=== PATIENT | female | born 1950 | race Caucasian/White ===

== ENCOUNTER 2016-06-14 09:12 | Outpatient (CLI) | payer MEDICARE, BC ==
--- NOTE | 2016-06-14 20:20 | RAD ---
PELVIS ONE VIEW 06/14/16 A single view no evidence of fracture. The bony pelvis appears intact. The SI joints are symmetrical and the symphysis shows no widening. The hip joints are symmetrical. No major hip fracture was carmelo cated. See right hip dictation to follow. the arcuate lines of the sacrum appear intact. IMPRESSION: No acute finding. POS: HOME
--- NOTE | 2016-06-14 20:41 | RAD ---
RIGHT HIP TWO VIEWS 06/14/16 Comparison is made with a 06/29/15 study. No major fracture or area of bony destruction was seen. The adjacent pubic ring is intact. The artic ular surface of the femoral head is smooth and the hip joint space is normal in width. On the rotated view, one sees a very tiny mike of bone along the lateral aspect of the upper acetab ulum. Looking at the hip x-ray done last year, this may have been present, but it overlapped the res t of the acetabulum, so it really could not be seen well. This could either be an old chip avulsion or it could relate to a developmental anomaly. Given the patient's chronic hip pain, an MRI of the h ip could be useful in investigating further if needed. IMPRESSION: 1. No acute bony findings. 2. Very tiny chip of bone seen on one view only along the lateral aspect of the acetabulum. Def initely not recent and possibly related to remote trauma. POS: HOME
== END 2016-06-14 09:13 | disposition home or self-care (01) ==
LOC: BURRAD 09:12
PROVIDERS: ATTEND Physician Assistant
DX: M25.551 Pain in right hip (principal); W19.XXXA Unspecified fall, initial encounter
CPT/HCPCS: 72170

== ENCOUNTER 2016-08-09 09:02 | Emergency (ER) | payer MEDICARE, BC ==
[2016-08-09] MEDS ORDERED: Lorazepam 2 MG/ML VIAL ONE (09:20)
[2016-08-09] MEDS ORDERED: Ondansetron HCl/PF 4 MG/2 ML Vial ONE (09:21)
[2016-08-09 09:31] LABS: #Basophils 0.1 thou/uL (0.0-0.2); #Lymphocytes 1.6 thou/uL (1.20-3.40); #Monocytes 0.6 thou/uL (0.11-0.59); #Neutrophils 9.6 thou/uL (1.40-6.50); %Basophils 0.5 % (0.0-1.0); %Eosinophils 0.3 % (0.0-10.0); %Lymphocytes 13.3 % (21.0-51.0); %Monocytes 4.7 % (0.0-10.0); %Neutrophils 81.2 % (42.0-75.0); Hemoglobin 16.2 g/dL (12.0-16.0); Mean Corpuscular HGB CONC 34.7 g/dL (32.0-36.0); Mean Corpuscular Hemoglobin 32.1 pg (27.0-31.0); Mean Corpuscular Volume 92.5 fl (81.0-99.0); Mean Platelet Volume 7.6 fL (7.4-10.4); Platelet Count 222 thou/uL (130-400); RBC Distribution Width 11.8 % (11.5-14.5); Red Blood Cell (RBC) Count 5.04 mill/uL (4.20-5.40); White Blood Cell (WBC) Count 11.8 thou/uL (4.8-10.8)
[2016-08-09 09:36] LABS: Bilirubin Negative (Negative); Blood, Urine Negative (Negative); Clarity Slightly Cloudy (Clear); Glucose, Urine (Dipstick) Negative (Negative); Leukocyte Negative (Negative); Nitrite Negative (Negative); pH, Urine 8.5 (5.0-9.0)
[2016-08-09 09:38] LABS: Protein, Urine (Dipstick) Negative (Neg-Trace)
[2016-08-09 09:43] LABS: ALT (SGPT) 64 U/L (8-55); AST (SGOT) 45 U/L (5-34); Albumin 4.7 g/dL (3.4-4.8); Alkaline Phosphatase 75 U/L (40-150); Anion Gap 17 mmol/L (10-20); BUN (Urea Nitrogen) 15 mg/dL (9.8-20.1); Calc. Creatinine Clearance 0 mL/min (70-130); Calcium 10.2 mg/dL (7.8-10.44); Carbon Dioxide 27 mmol/L (23-31); Chloride 98 mmol/L (98-107); Estimated GFR-MDRD 69; Globulin 3.6 g/dL (2.4-3.5); Glucose 122 mg/dL (80-115); Lipase 20 U/L (8-78); Protein, Total 8.3 g/dL (6.0-8.3); Sodium 139 mmol/L (136-145)
[2016-08-09 09:46] LABS: CKMB 2.5 ng/mL (0-6.6); Troponin I Less than 0.010 ng/mL (< 0.028)
[2016-08-09] MEDS ORDERED: Potassium Chloride 20 MEQ TAB ONE (09:47)
== END 2016-08-09 10:18 | disposition home or self-care (01) ==
LOC: BURERS 09:02
DX: R11.2 Nausea with vomiting, unspecified (principal); R10.30 Lower abdominal pain, unspecified; I10 Essential (primary) hypertension; G43.909 Migraine, unspecified, not intractable, without status migrainosus
CPT/HCPCS: 80053; 81003; 82553; 83690; 84484; 85025; 93005; 96361; 96374; 96375; J2060; J2405

== ENCOUNTER 2016-08-10 06:28 | Emergency (ER) | payer MEDICARE, BC ==
[2016-08-10] MEDS ORDERED: Lidocaine Viscous Sol 2% 15 ml UD Cup ONE (07:01)
[2016-08-10] MEDS ORDERED: Mag-Al Plus 1200 MG/1200 MG/120 MG/30 ML UDCUP ONE (07:01)
[2016-08-10] MEDS ORDERED: Promethazine HCl 25 MG/ML VIAL ONE (07:01)
[2016-08-10] MEDS ORDERED: Ketorolac Tromethamine 30 MG/ML VIAL ONE (07:01)
[2016-08-10 07:25] LABS: ALT (SGPT) 57 U/L (8-55); AST (SGOT) 40 U/L (5-34); Albumin 4.2 g/dL (3.4-4.8); Alkaline Phosphatase 68 U/L (40-150); Anion Gap 14 mmol/L (10-20); BUN (Urea Nitrogen) 14 mg/dL (9.8-20.1); Bilirubin, Total 0.8 mg/dL (0.2-1.2); Calc. Creatinine Clearance 0 mL/min (70-130); Calcium 9.7 mg/dL (7.8-10.44); Carbon Dioxide 28 mmol/L (23-31); Chloride 101 mmol/L (98-107); Estimated GFR-MDRD 73; Globulin 3.1 g/dL (2.4-3.5); Glucose 106 mg/dL (80-115); Lipase 19 U/L (8-78); Potassium 3.3 mmol/L (3.5-5.1); Protein, Total 7.3 g/dL (6.0-8.3); Sodium 140 mmol/L (136-145)
[2016-08-10 07:26] LABS: CKMB 2.6 ng/mL (0-6.6); Troponin I Less than 0.010 ng/mL (< 0.028)
[2016-08-10 07:49] LABS: #Lymphocytes 1.7 thou/uL (1.20-3.40); #Monocytes 0.4 thou/uL (0.11-0.59); %Basophils 0.5 % (0.0-1.0); %Eosinophils 0.5 % (0.0-10.0); %Monocytes 6.2 % (0.0-10.0); %Neutrophils 69.8 % (42.0-75.0); Hemoglobin 15.5 g/dL (12.0-16.0); Mean Corpuscular HGB CONC 34.7 g/dL (32.0-36.0); Mean Corpuscular Hemoglobin 32.3 pg (27.0-31.0); Mean Corpuscular Volume 93.3 fl (81.0-99.0); Mean Platelet Volume 8.4 fL (7.4-10.4); Platelet Count 209 thou/uL (130-400); RBC Distribution Width 12.2 % (11.5-14.5); Red Blood Cell (RBC) Count 4.81 mill/uL (4.20-5.40); White Blood Cell (WBC) Count 7.2 thou/uL (4.8-10.8)
--- NOTE | 2016-08-10 08:48 | CT ---
CT ABDOMEN AND PELVIS WITH CONTRAST: HISTORY: Evaluate for small bowel obstruction. Midabdominal pain. History of colon resection. Hysterectomy . Appendectomy. COMPARISON: CT abdomen and pelvis 10/05/14. FINDINGS: Lung bases are clear. No pericardial effusion. 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 The aortoili ac contour is normal. There is diffuse hepatic steatosis. The gallbladder is unremarkable as well as the spleen and pancr eas. Adrenal glands are unremarkable. There is mild prominence of the right renal collecting system and ureter. The left renal collecting system is without dilatation. No renal calculus is appreciated. No dilated loops of large or small bowel. Moderate diverticular disease of the sigmoid colon withou t active inflammation. IMPRESSION: 1. No evidence of bowel obstruction. No dilated loops of large or small bowel. 2. Mild prominence of the right renal collecting system may be physiologic as there are no obstruct av stones. 3. Diffuse hepatic steatosis. 4. No acute inflammatory process in the abdomen or pelvis. 5. Mildly prominent normal variant pericardial recess on the right inferior pulmonary vein. POS: MED
== END 2016-08-10 08:39 | disposition home or self-care (01) ==
LOC: BURERS 06:28
DX: G43.909 Migraine, unspecified, not intractable, without status migrainosus (principal); I10 Essential (primary) hypertension
CPT/HCPCS: 74177; 80053; 82553; 83690; 84484; 85025; 93005; 96361; 96372; 96374; J1885; J2550

== ENCOUNTER 2017-05-29 04:59 | Emergency (ER) | payer MEDICARE, BC ==
[2017-05-29] MEDS ORDERED: Ondansetron HCl/PF 4 MG/2 ML Vial ONE (05:53)
[2017-05-29] MEDS ORDERED: diphenhydrAMINE 50 MG/ML VIAL ONE (05:53)
[2017-05-29] MEDS ORDERED: Fentanyl 100 MCG/2 ML VIAL ONE (05:53)
[2017-05-29 06:04] LABS: PTT 27.5 SEC (22.9-36.1)
[2017-05-29 06:05] LABS: Albumin 4.1 g/dL (3.4-4.8); Calcium 9.5 mg/dL (7.8-10.44); Chloride 99 mmol/L (98-107); Globulin 3.2 g/dL (2.4-3.5); Glucose 128 mg/dL (80-115); Protein, Total 7.3 g/dL (6.0-8.3); Sodium 140 mmol/L (136-145)
[2017-05-29 06:22] LABS: Bilirubin Negative (Negative); Blood, Urine Negative (Negative); Clarity Clear (Clear); Glucose, Urine (Dipstick) Negative (Negative); Leukocyte Negative (Negative); Nitrite Negative (Negative); Protein, Urine (Dipstick) Negative (Neg-Trace); Specific Gravity, Urine 1.025 (1.005-1.030); Urobilinogen 0.2 mg/dL (0.2-1.0); pH, Urine 5.5 (5.0-9.0)
[2017-05-29 06:23] LABS: ALT (SGPT) 42 U/L (8-55); AST (SGOT) 34 U/L (5-34); Alkaline Phosphatase 68 U/L (40-150); BUN (Urea Nitrogen) 18 mg/dL (9.8-20.1); Bilirubin, Total 0.6 mg/dL (0.2-1.2); Calc. Creatinine Clearance 0 mL/min (70-130); Carbon Dioxide 29 mmol/L (23-31); Estimated GFR-MDRD 71; Lipase 17 U/L (8-78)
[2017-05-29 06:26] LABS: Potassium 2.8 mmol/L (3.5-5.1)
[2017-05-29 06:27] LABS: #Basophils 0.1 thou/uL (0.0-0.2); #Eosinphils 0.1 thou/uL (0.0-0.7); #Lymphocytes 2.5 thou/uL (1.20-3.40); #Monocytes 0.5 thou/uL (0.11-0.59); %Basophils 0.6 % (0.0-1.0); %Eosinophils 0.9 % (0.0-10.0); %Monocytes 5.9 % (0.0-10.0); %Neutrophils 65.5 % (42.0-75.0); Hemoglobin 14.9 g/dL (12.0-16.0); Mean Corpuscular HGB CONC 35.9 g/dL (32.0-36.0); Mean Corpuscular Hemoglobin 32.7 pg (27.0-31.0); Mean Corpuscular Volume 91.1 fl (81.0-99.0); Mean Platelet Volume 8.4 fL (7.4-10.4); Platelet Count 233 thou/uL (130-400); RBC Distribution Width 11.3 % (11.5-14.5); Red Blood Cell (RBC) Count 4.55 mill/uL (4.20-5.40); White Blood Cell (WBC) Count 9.2 thou/uL (4.8-10.8)
[2017-05-29 06:35] LABS: Anion Gap 15 mmol/L (10-20)
[2017-05-29] MEDS ORDERED: Dexamethasone 4 mg/ml Vial ONE (07:19)
--- NOTE | 2017-05-29 07:29 | CT ---
PRELIMINARY REPORT/[facility]/EMERGENCY AFTER HOURS PROCEDURE: EXAM: CT Angiography Chest With Intravenous Contrast CLINICAL HISTORY: 67 years old, female; Pain; Abdominal pain; Acute; Chest pain; Type not specified; Patient HX: R/O di ssection, neck, chest and abd pain. TECHNIQUE: Axial computed tomographic angiography images of the chest with intravenous contrast using pulmonary embolism protocol. All CT scans at this facility use one or more dose reduction techniques, viz.: aut omated exposure control; ma/kV adjustment per patient size (including targeted exams where dose is ma tched to indication; i.e. head); or iterative reconstruction technique. CONTRAST: 90 mL of ISO 370 administered intravenously. COMPARISON: No relevant prior studies available. FINDINGS: Pulmonary arteries: No pulmonary embolism. Aorta: No acute findings. No thoracic aortic aneurysm. Lungs: No mass. No consolidation. Pleural space: No significant effusion. No pneumothorax. Heart: No cardiomegaly. No significant pericardial effusion. No evidence of RV dysfunction. Bones/joints: No acute fracture. No dislocation. Soft tissues: Unremarkable. Lymph nodes: Mildly enlarged right infrahilar lymph node. A small hiatal hernia is detected. IMPRESSION: No aortic dissection or pulmonary embolism detected Mildly enlarged right infrahilar lymph node of unclear etiology. Small hiatal hernia EXAM: CT Angiography Abdomen and Pelvis With Intravenous Contrast CLINICAL HISTORY: 67 years old, female; Pain; Abdominal pain; Acute; Chest pain; Type not specified; Patient HX: R/O di ssection, neck, chest and abd pain. TECHNIQUE: Axial computed tomographic angiography images of the abdomen and pelvis with intravenous contrast. CONTRAST: 90 mL of ISO 370 administered intravenously. COMPARISON: No relevant prior studies available. FINDINGS: Lower thorax: No acute findings. VASCULATURE: Aorta: No acute findings. No abdominal aortic aneurysm. No dissection. Celiac trunk and mesenteric arteries: No acute findings. No occlusion or significant stenosis. Renal arteries: No acute findings. No occlusion or significant stenosis. Iliac arteries: No acute findings. No occlusion or significant stenosis. ABDOMEN: Liver: Unremarkable. No mass. Gallbladder and bile ducts: No calcified stones. No ductal dilation. Pancreas: No ductal dilation. No mass. Spleen: Unremarkable. No splenomegaly. Adrenals: Unremarkable. No mass. Kidneys and ureters: No hydronephrosis. No solid mass. Stomach and bowel: Suture line at the rectosigmoid junction No obstruction. No mucosal thickening. Appendix: No findings to suggest acute appendicitis. PELVIS: Bladder: Unremarkable. No mass. Reproductive: Unremarkable as visualized. ABDOMEN and PELVIS: Intraperitoneal space: No significant fluid collection. No free air. Bones/joints: No acute fracture. No dislocation. Postsurgical changes at L5-S1 with partial fusion no criselda Soft tissues: Unremarkable. Lymph nodes: No enlarged lymph nodes. IMPRESSION: No acute findings in the arterial system of the abdomen and pelvis. Thank you for allowing us to participate in the care of your patient. Dictated and Authenticated by: Domenic Moreland MD 05/29/2017 7:19 AM Central Time ([place] & [place]) FINAL REPORT CT AORTIC DISSECTION PROTOCOL: Date: 05/29/[address] of the chest, abdomen, and pelvis was done for evaluation of a possible aortic dissection. The patient presents with pain. Axial slices were acquired after a bolus of IV contrast. Coronal and sagittal reconstructions were done throughout the entire range afterwards. FINDINGS: There is good opacification of the entire aorta. There is no sign of aortic dissection or aneurysm. I n the thoracic region, one sees a minimal amount of arteriosclerotic change for age. In the abdominal region, the celiac artery, SMA, and JAISON fill appropriately, as do both renal arteries. No gross sign s of stenosis seen. The thoracic part of the CT also had dense opacification of the pulmonary arteries. There were no aruna ling defects to suggest emboli. There was no mediastinal mass or adenopathy. No pericardial effusion was present. The lungs were clear with no infiltrate, nodules, or effusions noted. The abdominal part of the scan showed a small hiatal hernia. The liver is somewhat low in density whi ch could signify fatty infiltration. No stones were seen in the gallbladder. The spleen, pancreas, ad renal glands, and kidneys all appeared normal. The bowel was nondistended with no sign of obstruction. No inflammatory changes were seen around mira l and there was no bowel wall thickening. No free air or free fluid was seen. Findings through the area of pelvis showed no mass, inflammatory change, or free fluid. IMPRESSION: 1. No evidence of aortic dissection or aneurysm. No evidence of pulmonary embolism. 2. Small hiatal hernia. 3. Probable fatty infiltration of the liver. POS: HOME
[2017-05-29 07:54] LABS: CKMB 1.5 ng/mL (0-6.6); Troponin I Less than 0.010 ng/mL (< 0.028)
== END 2017-05-29 07:55 | disposition home or self-care (01) ==
LOC: BURERS 04:59
DX: M54.12 Radiculopathy, cervical region (principal); E87.6 Hypokalemia; I10 Essential (primary) hypertension; G43.909 Migraine, unspecified, not intractable, without status migrainosus; Z79.899 Other long term (current) drug therapy
CPT/HCPCS: 71275; 80053; 81003; 82553; 83690; 84484; 85025; 85610; 85652; 85730; 93005; 96374; 96375; J1100; J1200; J2405; J3010

== ENCOUNTER 2017-06-16 07:42 | Emergency (ER) | payer MEDICARE, BC | END 2017-06-16 08:24 | disposition home or self-care (01) | LOC: BURERS 07:42 | DX: G89.29 Other chronic pain (principal); M54.2 Cervicalgia; R11.0 Nausea; I10 Essential (primary) hypertension; G43.909 Migraine, unspecified, not intractable, without status migrainosus; F41.9 Anxiety disorder, unspecified; Z79.891 Long term (current) use of opiate analgesic; Z79.899 Other long term (current) drug therapy | CPT/HCPCS: 99283 ==

== ENCOUNTER 2018-06-28 06:46 | Emergency (ER) | payer MEDICARE, BC ==
[2018-06-28] MEDS ORDERED: diphenhydrAMINE 50 MG/ML VIAL ONE (07:21)
[2018-06-28] MEDS ORDERED: Ketorolac Tromethamine 30 MG/ML VIAL ONE (07:22)
== END 2018-06-28 08:10 | disposition home or self-care (01) ==
LOC: BURERS 06:46
DX: G43.909 Migraine, unspecified, not intractable, without status migrainosus (principal); I10 Essential (primary) hypertension; F41.9 Anxiety disorder, unspecified; Z79.899 Other long term (current) drug therapy
CPT/HCPCS: 96361; 96374; 96375; J1200; J1885

== ENCOUNTER 2018-08-22 04:02 | Emergency (ER) | payer MEDICARE, BC ==
[2018-08-22] MEDS ORDERED: HYDROcodone/Acetaminophen 10/325 mg Tablet ONE (04:30)
[2018-08-22] MEDS ORDERED: Ketorolac Tromethamine 30 MG/ML VIAL ONE (04:30)
[2018-08-22] MEDS ORDERED: Ondansetron ODT 4 MG TAB ONE (04:30)
== END 2018-08-22 05:10 | disposition home or self-care (01) ==
LOC: BURERS 04:02
DX: S16.1XXA Strain of muscle, fascia and tendon at neck level, initial encounter (principal); I10 Essential (primary) hypertension; F41.9 Anxiety disorder, unspecified; Z79.899 Other long term (current) drug therapy; X50.9XXA Other and unspecified overexertion or strenuous movements or postures, initial encounter
CPT/HCPCS: 96372; J1885; Q0162

== ENCOUNTER 2018-08-22 11:05 | Emergency (ER) | payer MEDICARE, BC ==
[2018-08-22] MEDS ORDERED: Diazepam 5 MG TAB ONE (11:29)
== END 2018-08-22 11:58 | disposition home or self-care (01) ==
LOC: BURERS 11:05
DX: S16.1XXA Strain of muscle, fascia and tendon at neck level, initial encounter (principal); I10 Essential (primary) hypertension; F41.0 Panic disorder [episodic paroxysmal anxiety]; Z79.899 Other long term (current) drug therapy; X58.XXXA Exposure to other specified factors, initial encounter
CPT/HCPCS: 99283

== ENCOUNTER 2019-01-23 03:38 | Emergency (ER) | payer MEDICARE, BC ==
[2019-01-23] MEDS ORDERED: diphenhydrAMINE 50 MG/ML VIAL ONE (04:14)
[2019-01-23] MEDS ORDERED: Ketorolac Tromethamine 30 MG/ML VIAL ONE (04:14)
[2019-01-23] MEDS ORDERED: Magnesium 2 GM/50 ML BAG (IN WATER) ONE (04:14)
[2019-01-23] MEDS ORDERED: Fluorescein Opthalmic Strip ONE ×2 (04:18→04:19)
[2019-01-23] MEDS ORDERED: Tetracaine 0.5% OPHTH SOLN/PF 4 ML BOT ONE ×2 (04:18→04:19)
== END 2019-01-23 05:12 | disposition home or self-care (01) ==
LOC: BURERS 03:38
DX: G43.809 Other migraine, not intractable, without status migrainosus (principal); I10 Essential (primary) hypertension; F41.9 Anxiety disorder, unspecified; Z79.899 Other long term (current) drug therapy
CPT/HCPCS: 96365; 96375; J1200; J1885; J3475

== ENCOUNTER 2024-01-11 11:54 | Emergency (ER) | payer MEDICARE ==
[2024-01-11] MEDS ORDERED: Ketorolac Tromethamine 30 MG (1 mL) VIAL ONE (12:19)
[2024-01-11 12:33] LABS: #Basophils 0.1 thou/uL (0.0-0.2); #Lymphocytes 1.2 thou/uL (1.20-3.40); #Monocytes 0.3 thou/uL (0.11-0.59); #Neutrophils 4.4 thou/uL (1.40-6.50); %Basophils 0.9 % (0.0-1.0); %Eosinophils 0.1 % (0.0-10.0); %Lymphocytes 20.6 % (21.0-51.0); %Monocytes 4.2 % (0.0-10.0); %Neutrophils 74.2 % (42.0-75.0); Hematocrit 43.5 % (36.0-47.0); Hemoglobin 14.3 g/dL (12.0-16.0); Mean Corpuscular HGB CONC 32.9 g/dL (32.0-36.0); Mean Corpuscular Hemoglobin 31.1 pg (27.0-31.0); Mean Corpuscular Volume 94.6 fl (78.0-98.0); Mean Platelet Volume 7.5 fL (7.4-10.4); Platelet Count 212 10x3/uL (130-400); RBC Distribution Width 11.3 % (11.5-14.5)
[2024-01-11] MEDS ORDERED: Ondansetron PF 4 MG/2 ML Vial ONE ×2 (12:49→13:28)
[2024-01-11 12:51] LABS: ALT (SGPT) 20 U/L (8-55); AST (SGOT) 24 U/L (5-34); Alkaline Phosphatase 78 U/L (40-110); Anion Gap 14 mmol/L (10-20); BUN (Urea Nitrogen) 13 mg/dL (9.8-20.1); Bilirubin, Total 0.6 mg/dL (0.2-1.2); Calc. Creatinine Clearance 0 mL/min (70-130); Calcium 9.7 mg/dL (7.8-10.44); Carbon Dioxide 27 mmol/L (23-31); Chloride 105 mmol/L (98-107); Estimated GFR 81; Globulin 3.2 g/dL (2.4-3.5); Glucose 118 mg/dL (83-110); Potassium 3.9 mmol/L (3.5-5.1); Protein, Total 7.2 g/dL (5.8-8.1); Sodium 142 mmol/L (136-145)
[2024-01-11 12:52] LABS: Troponin I Less than 0.010 ng/mL (< 0.028)
[2024-01-11 13:29] LABS: Bilirubin Negative (Negative); Blood, Urine Negative (Negative); Clarity Clear (Clear); Glucose, Urine (Dipstick) Negative (Negative); Ketone, Urine Trace mg/dL (Negative); Leukocyte Negative (Negative); Nitrite Negative (Negative); Protein, Urine (Dipstick) Negative (Neg-Trace); Specific Gravity, Urine 1.015 (1.005-1.030); Urobilinogen 0.2 mg/dL (Less than 2); pH, Urine 8.5 (5.0-9.0)
[2024-01-11] MEDS ORDERED: Iopamidol 370 76% 100 ML VIAL ONE (13:31)
[2024-01-11 13:35] LABS: Bacteria/HPF 2+ HPF (None Seen); CAUTI Indications for Culture Dysuria,urgency,freq; RBC/HPF None Seen HPF (0-3); Squamous Epithelial 0-3 HPF (0-3); WBC/HPF 0-3 HPF (0-3)
[2024-01-11 13:36] LABS: Urine Culture Reflex No No
== END 2024-01-11 14:59 | disposition home or self-care (01) ==
LOC: BURERS 11:54
DX: S39.011A Strain of muscle, fascia and tendon of abdomen, initial encounter (principal); E86.0 Dehydration; R29.700 NIHSS score 0; R10.32 Left lower quadrant pain; I10 Essential (primary) hypertension; X58.XXXA Exposure to other specified factors, initial encounter
CPT/HCPCS: 74177; 80053; 81001; 83605; 84484; 85025; 93005; 94760; 96361; 96374; 96375; 96376; 99284; J1885; J2405; Q9967

== ENCOUNTER 2024-11-01 05:04 | Emergency (ER) | payer MEDICARE ==
[2024-11-01 05:48] LABS: #Basophils 0.1 thou/uL (0.0-0.2); #Eosinophils 0.0 thou/uL (0.0-0.7); #Lymphocytes 1.5 thou/uL (1.20-3.40); #Monocytes 0.5 thou/uL (0.11-0.59); #Neutrophils 5.0 thou/uL (1.40-6.50); %Basophils 1.6 % (0.0-1.0); %Eosinophils 0.7 % (0.0-10.0); %Lymphocytes 21.2 % (21.0-51.0); %Monocytes 6.3 % (0.0-10.0); %Neutrophils 70.3 % (42.0-75.0); Hematocrit 40.6 % (36.0-47.0); Hemoglobin 14.6 g/dL (12.0-16.0); Mean Corpuscular Hemoglobin 32.4 pg (27.0-31.0); Mean Corpuscular Volume 90.2 fl (78.0-98.0); Platelet Count 190 10x3/uL (130-400); Red Blood Cell (RBC) Count 4.50 mill/uL (4.20-5.40); White Blood Cell (WBC) Count 7.2 10x3/uL (4.8-10.8)
[2024-11-01] MEDS ORDERED: diphenhydrAMINE 50 MG/ML VIAL ONE (05:48)
[2024-11-01] MEDS ORDERED: Prochlorperazine 10 MG/2 ML VIAL ONE (05:48)
[2024-11-01] MEDS ORDERED: Ketorolac Tromethamine 30 MG (1 mL) VIAL ONE (05:48)
[2024-11-01 05:57] LABS: INR-International Normal Ratio 1.1; Prothrombin Time 14.1 sec (12.0-14.7)
[2024-11-01 06:05] LABS: AST (SGOT) 25 U/L (11-34); Albumin 3.9 g/dL (3.1-4.5); Alkaline Phosphatase 63 U/L (40-110); Anion Gap 14 mmol/L (10-20); BUN (Urea Nitrogen) 15 mg/dL (9.8-20.1); Bilirubin, Total 0.7 mg/dL (0.3-1.2); Calc. Creatinine Clearance 0 mL/min (70-130); Calcium 9.1 mg/dL (7.8-10.44); Carbon Dioxide 26 mmol/L (23-31); Chloride 104 mmol/L (98-107); Globulin 3.0 g/dL (2.4-3.5); Glucose 98 mg/dL (83-110); Potassium 3.8 mmol/L (3.5-5.1); Sodium 140 mmol/L (136-145)
[2024-11-01 06:35] LABS: ALT (SGPT) 14 U/L (Less than 34)
== END 2024-11-01 06:25 | disposition home or self-care (01) ==
LOC: BURERS 05:04
DX: G43.909 Migraine, unspecified, not intractable, without status migrainosus (principal); I10 Essential (primary) hypertension
CPT/HCPCS: 80053; 85025; 85610; 96374; 96375; J0780; J1200; J1885

== ENCOUNTER 2025-01-20 22:18 | Emergency (ER) | payer BC, MEDICARE ==
[2025-01-20] MEDS ORDERED: Ketorolac Tromethamine 30 MG (1 mL) VIAL ONE (23:34)
== END 2025-01-20 23:50 | disposition home or self-care (01) ==
LOC: BURERS 22:18
DX: S90.32XA Contusion of left foot, initial encounter (principal); I10 Essential (primary) hypertension; X58.XXXA Exposure to other specified factors, initial encounter
CPT/HCPCS: 96372; 99283; J1885